=== PATIENT | female | born 1950 | race Caucasian/White ===

== ENCOUNTER → 2019-08-13 13:45 | Outpatient (CLI) | payer MEDICARE, OTHER, SELFPAY ==
--- NOTE | 2019-08-13 | DI.CT.S_ITS ---
PROCEDURE: CT SINUS SCREEN WO CON INDICATIONS: Postnasal drip TECHNIQUE: Noncontrast 3.0 mm axial images acquired from the frontal sinuses to the mid-sella, with coronal and sagittal reformats. For radiation dose reduction, the following was used: automated exposure control, adjustment of mA and/or kV according to patient size. COMPARISON: None. FINDINGS: Image quality: Excellent. Paranasal sinuses are normally aerated. No mucosal thickening identified. No air-fluid levels identified. The osteomeatal units this are patent bilaterally. No osseous thickening, osseous remodeling or osseous erosive changes. Nasal septum is deviated to the right. Left aurora bullosa is noted. No paradoxical turbinates. Type III right frontal recess are noted. Type I left frontal recess are noted. Interfrontal sinus septal cell with pneumatized corbin chris noted. IMPRESSION: 1. No mucosal thickening or air-fluid levels.. 2. Variant paranasal sinus anatomy as described above. Dictated by: Chio Burgos MD, PhD on 08/13/2019 at 14:48 Approved by: Chio Burgos MD, PhD on 08/13/2019 at 14:56
== END ==
PROVIDERS: Family Provider Family Medicine; PCP Nurse Practitioner Family; Visit Provider Nurse Practitioner Family
DX: R09.82 Postnasal drip (principal); J01.81 Other acute recurrent sinusitis
CPT/HCPCS: 70486

== ENCOUNTER → 2019-11-16 14:18 | Outpatient (CLI) | payer MEDICARE, OTHER, SELFPAY ==
--- NOTE | 2019-11-16 | DI.CT.S_ITS ---
PROCEDURE: CT ABDOMEN PELVIS W CON INDICATIONS: Generalized abdominal pain TECHNIQUE: After the administration of oral and intravenous contrast, 5 mm thick sections acquired from the diaphragms to the symphysis. 5 mm thick coronal and sagittal reformats were performed. For radiation dose reduction, the following was used: automated exposure control, adjustment of mA and/or kV according to patient size. COMPARISON: [facility], CT, ABDOMEN W&WO CONTRAST, 10/19/2016, 11:59. FINDINGS: Image quality: Excellent. ABDOMEN: Lung bases: Minimal scarring, anterior right lung base. Heart size is normal. Solid organs: Liver is normal in size and enhancement. Gallbladder is again noted a 14 mm gallstone. Gallbladder wall is not thickened. Biliary system is non-dilated. Pancreas enhances normally. Spleen is normal in size and enhancement. There is either a hyperenhancing 1.3 cm left adrenal nodule or a small saccular aneurysm off of the splenic artery. It is not appreciably changed in size. On the prior study, by my measurements, and measured 1.2 cm. Kidneys are normal in size and enhancement, without hydronephrosis. Peritoneum and bowel: Stomach, small bowel, and colon loops are normal in caliber and wall thickness. No free fluid or air. Nodes and vessels: No retroperitoneal or mesenteric adenopathy. Aorta and inferior vena cava are normal in caliber. Miscellaneous: No ventral hernias. PELVIS: Genitourinary: Bladder wall thickness is normal. Miscellaneous: No inguinal hernias or adenopathy. Bones: No suspicious bony lesions. No vertebral body compression fractures. Disc bulges at L3-L4, L4-L5, and L5-S1. IMPRESSION: 1. No evidence acute abdominal process. 2. Cholelithiasis. 3. Stable 1.3 cm hyper-enhancing left adrenal nodule versus small saccular splenic artery aneurysm. Dictated by: Jordi Garrido M.D. on 11/16/2019 at 15:54 Approved by: Jordi Garrido M.D. on 11/16/2019 at 16:11
== END ==
PROVIDERS: Family Provider Family Medicine; PCP Nurse Practitioner Family; Referring Provider Nurse Practitioner Family; Visit Provider Nurse Practitioner Family
DX: R10.84 Generalized abdominal pain (principal); R19.7 Diarrhea, unspecified; K80.20 Calculus of gallbladder without cholecystitis without obstruction
CPT/HCPCS: 74177

== ENCOUNTER → 2019-12-07 09:54 | Outpatient (CLI) | payer MEDICARE, OTHER, SELFPAY ==
--- NOTE | 2019-12-07 09:59 | DI.RAD.S_ITS ---
PROCEDURE: FL BARIUM SWALLOW INDICATIONS: dysphagia of solids and liquids. Epigastric pain COMPARISON: None. FINDINGS: Function: There is delayed esophageal peristalsis. Delayed esophageal clearance. No elicited gastroesophageal reflux. Morphology: Air-contrast images demonstrate normal mucosal morphology. Single contrast views show no esophageal strictures, extrinsic mass effects, or diverticula. Limited images of the stomach demonstrate normal appearance. IMPRESSION: Esophageal dysmotility. Dictated by: Braydon Mcdonough M.D. on 12/07/2019 at 14:42 Approved by: Braydon Mcdonough M.D. on 12/07/2019 at 14:43
== END ==
PROVIDERS: Family Provider Family Medicine; PCP Nurse Practitioner Family; Referring Provider Specialist; Visit Provider Specialist
DX: R13.10 Dysphagia, unspecified (principal); R10.13 Epigastric pain; K22.4 Dyskinesia of esophagus
CPT/HCPCS: 74220

== ENCOUNTER 2019-12-18 08:55 | Day surgery (SDC) | payer MEDICARE, OTHER, SELFPAY ==
--- NOTE | 2019-12-18 | PATH_ITS ---
[facility] Accession Number: [id number] . 01 Material submitted: . gastrointestinal site - RANDOM STOMACH BIOPSY . 02 Diagnosis: Random Stomach, Biopsy: Gastric antral and body mucosa with mild chronic inflammation and features of reactive gastropathy. Negative for Helicobacter organisms by immunohistochemistry. Negative for intestinal metaplasia. Negative for dysplasia or malignancy. [facility] 12/20/2019 1220 Local . 02 Electronically signed: . Justin Baker MD, PhD, Pathologist NPI- [id number] . 01 Gross description: . RANDOM STOMACH BIOPSY: Received in formalin are 3 fragment(s) of mercado, soft tissue measuring 0.1 x 0.1 x 0.1 cm to 0.2 x 0.2 x 0.2 cm submitted entirely in 1 cassette(s) [place] [place]18[place]20192030 Local . 02 Microscopic: . An immunohistochemical stain was performed to evaluate for Helicobacter organisms and is negative. The control stain showed appropriate reactivity. . * This test was developed and its performance characteristics determined by [facility]. It has not been cleared or approved by the U.S. Food and Drug Administration. The FDA has determined that such clearance or approval is not necessary. This test is used for clinical purposes. It should not be regarded as investigational or for research. . 02 Pathologist provided ICD-10: K29.70 . 02 CPT . 342966, [id number] Performed at: 01 [facility] [address] [facility], [place], [place] [id number] MD Lit Mendiola MD Phone: [phone] Performed at: 02 [facility] [place] [address] , [place], [place] [id number] MD Luzma Hinojosa MD Phone: [phone]
[2019-12-18] MEDS: LACTATED RINGERS 1,000 ML 100 ML IV (09:20)
[2019-12-18 09:27] VITALS: BP 104/56; PULSE 70; RESP 16; TEMP 36; O2SAT 100; BMI 23.2
[2019-12-18] MEDS: LIDOCAINE 4% SOLN 50 ML 20 ML TOP (09:45)
--- NOTE | 2019-12-18 09:51 | PM.PREOP ---
Pre-operative Note Interval Note History & Physical reviewed/Exam performed by Physician: Yes Changes to H&P: No ASA Class (for procedural sedation): II
--- NOTE | 2019-12-18 10:05 | PM.OP.ENDO ---
Operative Date/Time/Diagnoses Date of procedure: 12/18/19 Time of procedure: 10:05 Pre-op diagnosis: Left upper quadrant pain. Post-op diagnosis: same (Causes of pain not clear from this exam) Procedure & Clinicians Study performed: EGD with cold biopsy Same procedure as scheduled: Yes Indications: Trying to determine cause of epigastric and left upper quadrant pain Surgeon: Hema Hardwick Procedure Notes SCOAP/Timeout: Performed Procedure in detail: The patient had topical anesthetic applied to oropharynx. She was placed in left lateral decubitus position and underwent IV sedation directed by the surgeon consisting of fentanyl and Versed. A bite block was inserted and the scope was advanced through it into the esophagus. The esophagus was unremarkable. GE junction was noted at 38 cm from the incisors. The stomach insufflated well. There were no lesions seen in the body, antrum or at the incisura. The pyloric channel was narrowed but patent. There was no inflammation.. The duodenum was unremarkable to the 4th part. The scope was brought back into the stomach and retroflexed. The proximal stomach normal in appearance. There was no evidence of a hiatal hernia. I performed random biopsies of the body and antrum in case there was a sub clinical process that was not apparent on endoscopy.. The scope was straightened and brought out through the esophagus again. No lesions were seen. The scope was removed and the patient tolerated the procedure well. Scope withdrawal time: Not applicable Sedation minutes: 12 Findings: other findings (Normal exam) Specimen(s): other (Random stomach biopsies) Complications: none Post-procedure Recommendations: Will call with biopsy results and Other recommendation (Consider removal of gallbladder, though that may not relieve her symptoms) Follow up: weeks (Will discuss follow-up in office.) Disposition: PACU
[2019-12-18] MEDS: fentaNYL 250 MCG/5 ML INJ IV (10:06)
[2019-12-18] MEDS: MIDAZOLAM 5 MG/5 ML VIAL IV (10:07)
[2019-12-18 10:09] VITALS: BP 125/67; PULSE 84; RESP 12; TEMP 36.1; O2SAT 96
[2019-12-18 10:14] VITALS: BP 116/65; PULSE 88; RESP 14; TEMP 36.1; O2SAT 95
[2019-12-18 10:18] VITALS: BP 113/68; PULSE 95; RESP 13; TEMP 36.1; O2SAT 95
[2019-12-18 10:23] VITALS: BP 119/71; PULSE 82; RESP 19; TEMP 36.4; O2SAT 98
[2019-12-18 10:43] VITALS: BP 106/60; PULSE 75; RESP 16; TEMP 36.8; O2SAT 100
== END 2019-12-18 10:59 | disposition home or self-care (01) ==
PROVIDERS: Family Provider Family Medicine; PCP Nurse Practitioner Family; Referring Provider Specialist; Visit Provider Specialist
PROC: 0DJ08ZZ Inspection of Upper Intestinal Tract, Via Natural or Artificial Opening Endoscopic (ICD-10-PCS; CPT 43235; principal; 2019-12-18 09:45)
DX: K29.50 Unspecified chronic gastritis without bleeding (principal)
CPT/HCPCS: 43239; 99152; J2250; J3010

== ENCOUNTER 2020-01-29 06:35 | Day surgery (SDC) | payer MEDICARE, OTHER, SELFPAY ==
[2020-01-28 08:24] VITALS: BMI 22.8
[2020-01-29] VITALS (10 sets, daily range): BP systolic 106–141; BP diastolic 45–69; PULSE 76–107; RESP 9–16; TEMP 36.6–37.1; O2SAT 93–100; BMI 22.4
--- NOTE | 2020-01-29 | PATH_ITS ---
[facility] Accession Number: [id number] . 01 Material submitted: . gallbladder - GALLBLADDER AND CONTENTS . 02 Diagnosis: Gallbladder And Contents, Cholecystectomy: Cholelithiasis with mild chronic cholecystitis. One benign cystic duct lymph node. No evidence of neoplasm. [facility] 01/31/2020 1220 Local . 02 Electronically signed: . Justin Baker MD, PhD, Pathologist NPI- [id number] . 01 Gross description: . Received in formalin, labeled gallbladder + contents, is an intact gallbladder (length-7.5 cm, diameter-3.0 cm) with martinez-blue smooth shiny mucosa and a patent cystic duct. A 0.9 x 0.5 x 0.4 cm lymph node is identified. The lumen contains dark green viscous bile and one pale yellow gritty hard calculus (1.8 x 1.4 x 0.8 cm) with a crystalline cut surface. The mucosa is pale green, smooth, flat and focally bosselated. The wall is up to 0.1 cm thick. No nodules, masses or lesions are identified. Section code: (A1) cystic duct resection margin and two serial sections from the body; (A2) two longitudinal sections from the fundus; (A3) one bisected lymph node. ([id number]) /[facility] 01/30/2020 1057 Local . 02 Pathologist provided ICD-10: K80.60 . 02 CPT . 738449 Performed at: 01 [facility] [address] [facility], [place], [place] [id number] MD Lit Mendiola MD Phone: [phone] Performed at: 02 [facility] [address] [place], [place] [id number] MD Luzma Hinojosa MD Phone: [phone]
[2020-01-29] MEDS: LACTATED RINGERS 1,000 ML 42 ML IV ×2 (07:15→10:35)
--- NOTE | 2020-01-29 07:49 | PM.HP.1 ---
History of Present Illness History of Present Illness Date Patient Seen: 01/29/20 Time Patient Seen: 07:40 Chief complaint: 13819 Narrative: Patient is a woman who has upper abdominal pain. Is intermittent in nature. This is been going on for quite a while. Does not seem to be food related. Most of her pain is been left upper quadrant she has had an extensive evaluation the only thing found is gallstones. She has now developed pain in the right upper quadrant. She is brought in for more urgent procedure. Patient History Medical History Anxiety (Acute) Chronic back pain (Acute) Esophageal dysmotility (Acute) Former smoker (Acute) Gallstones (Acute) Gout (Acute) Migraines (Acute) Osteopenia (Acute) Osteoporosis (Acute) RLS (restless legs syndrome) (Acute) Surgical History Hx of bilateral cataract extraction (Acute 01/2017) Status post hysterectomy Family & Social History Family History Brother Hypertension Diabetes mellitus Stroke Brother Heart disease Diabetes mellitus Grandfather Diabetes mellitus Social History: household members significant other Tobacco & Substance use: Smoking Status Never smoker alcohol intake current alcohol intake frequency a few times a week Substance Use Type does not use Meds Home Medications and Allergies Home Medications Medication Instructions Recorded Confirmed Type buspirone 10 mg tablet 10 mg PO BID tab 12/05/19 01/29/20 History hydroxyzine HCl 25 mg tablet 25 mg PO QID PRN 12/05/19 01/29/20 History diazepam 2 mg PO BID PRN 12/18/19 01/29/20 History sumatriptan succinate 100 mg PO DAILY PRN 12/18/19 01/29/20 History acetaminophen [Acetaminophen Extra 500 mg PO DAILY PRN 01/29/20 01/29/20 History Strength] fluoxetine 40 mg PO DAILY 01/29/20 01/29/20 History Allergies Allergy/AdvReac Type Severity Reaction Status Date / Time prochlorperazine Allergy Unknown TORTICOLLIS Verified 12/18/19 09:22 [PROCHLORPERAZINE] Review of Systems Review of Systems ROS: Yes All systems reviewed with the patient and are negative except as otherwise documented Exam Vital Signs (past 8 hours): - 01/29/20 07:16 Temperature 98.3 F Pulse Rate 76 Respiratory Rate 16 Blood Pressure 106/53 L Pulse Oximetry 100 Oxygen Delivery Method Room Air Narrative Exam Narrative: Cooperative no apparent distress. Thin. Lungs are clear to auscultation no rales or rhonchi. Heart regular rate and rhythm without murmur gallop. Abdomen is scaphoid soft nontender. Vertical midline scar in the lower abdomen. Alert and oriented x3. Assessment & Plan Assessment & Plan narrative: I have discussed laparoscopic cholecystectomy with the patient. Risks of bleeding infection hernia injury to internal organs or ducts and bile leakage have been discussed. I also discussed with her the fact that her pain may not be relieved. She appears to understand wishes to proceed
--- NOTE | 2020-01-29 07:52 | PM.PREOP ---
Pre-operative Note COVID-19 COVID-19 status: Negative Interval Note History & Physical reviewed/Exam performed by Physician: Yes Changes to H&P: No
[2020-01-29] MEDS: CEFAZOLIN 2 GM/100 ML FROZ.PIGGY IV (07:55)
--- NOTE | 2020-01-29 08:16 | SUR.OPER ---
Supine on padded OR bed, head on pillow, safety belt at thigh, arms secured on padded arm boards <90 degrees abduction. Legs uncrossed. Padded footboard in place. Tape over blanket to secure lower legs.
[2020-01-29] MEDS: BUPIVACAINE 0.5% (PF) VIAL 30 ML INJ (08:22)
--- NOTE | 2020-01-29 09:37 | PM.OP.1 ---
Operative Date/Time/Diagnoses Date of procedure: 01/29/20 Time of procedure: 09:37 Pre-op diagnosis: Severe right upper quadrant pain with gallstones Post-op diagnosis: same (Chronic cholecystitis) Procedure & Clinicians Procedure: Laparoscopic cholecystectomy Same procedure as scheduled: Yes Indications: Patient developed severe right upper quadrant pain and has known gallstones. Evaluation for other sources of her pain have been negative. Surgeon: Hema Hardwick Click Yes if Unassisted: Yes Anesthesia Type: General Operative Notes Findings: For flimsy adhesions to the surface of the gallbladder. Gallbladder appeared mildly inflamed. Least 1 large stone palpated in the gallbladder. Closure Type: primary Specimen(s): other (Gallbladder and contents.) Prosthetic devices, grafts, tissues, transplants, or devices: None Estimated Blood Loss (mL): 5 Blood products transfused: none Procedure in detail: The patient was placed supine on the operating room table and underwent general endotracheal anesthesia. The patient was prepped and draped in the usual fashion. Local anesthetic was infiltrated near the umbilicus and curvilinear incision made and carried down through fascia into the peritoneal cavity. Stay sutures of 0 Vicryl were placed in the fascia. A 12 mm port was placed. The abdomen was insufflated. The patient was repositioned. Local anesthetic was infiltrated in 3 areas under the right costal margin and 3 small incisions made followed by placing 3 5 mm ports under direct laparoscopic camera vision internally. The gallbladder was grasped and elevated. Dissection was begun near its end. A ductal and vascular structure singular nature going directly gallbladder were identified. There also 2 smaller structures identified that could have been veins. Clips were placed across all these. The duct and artery were divided leaving 2 clips on each. One clip was left on the other 2 structures.. The gallbladder was then dissected from its bed in the liver using cautery. Bleeding was controlled as I progressed. It was detached and removed through the umbilical port. air was evacuated through the filter and the ports were all removed. The port sites were all irrigated. The stay sutures at the umbilicus were elevated. A 2 0 PDS suture was placed between them. The Vicryl and PDS sutures were then tied. The skin in all areas was closed with interrupted 4 0 Vicryl subcuticular stitches. Steri-Strips and Mastisol were applied. Band-Aids were placed and the patient was awakened, extubated and taken to the recovery area in good condition. Complications: none Post-operative Condition: stable Disposition: PACU Plan for aftercare: Discharge to home when alert and tolerating p.o.
--- NOTE | 2020-01-29 10:04 | SUR.PHASEI ---
Stable PACU stay to opd.
[2020-01-29] MEDS: OXYCODONE/ACETAMINOPHEN 5/325 TABLET 1 TAB PO (10:24)
--- NOTE | 2020-01-29 10:26 | SUR.PHASEII ---
PT C/O PAIN 01/10. MEDICATED WITH PERCOCET, AFTER APPLESAUCE TOLERATED. Pt's significant other, Lilliana called and d/c instructions discussed.
[2020-01-29] MEDS: ONDANSETRON 4 MG/2 ML INJ IV (10:51)
[2020-01-29] MEDS: LORazepam 2 MG/ML INJ 0.25 MG IV (10:59)
--- NOTE | 2020-01-29 11:46 | SUR.PHASEII ---
Late entry: Pt c/o feeling tight muscles and wanting a muscle relaxant. Ativan given after a discussion with Dr. Mcdonough. Pt placed on continuopus pulse ox and JULIENNE Wilson sat with pt. Sats 90-96% Pt more awake. Abdomen with bandainds c/d/i. Presently moving around in bed and siting on side of bed with Katie. Nausea resolved long ago and pain improved.
--- NOTE | 2020-01-29 14:01 | SUR.PHASEII ---
Late entry: Pt stated she was ready to go, dressed and escorted from unit in stable condition. Lilliana given paper work and prescription, stated he understood instructions.
== END 2020-01-29 12:15 | disposition home or self-care (01) ==
PROVIDERS: Family Provider Family Medicine; PCP Nurse Practitioner Family; Referring Provider Specialist; Visit Provider Specialist
PROC: 0FT44ZZ Resection of Gallbladder, Percutaneous Endoscopic Approach (ICD-10-PCS; CPT 47562; principal; 2020-01-29 07:45)
DX: K80.10 Calculus of gallbladder with chronic cholecystitis without obstruction (principal); K82.8 Other specified diseases of gallbladder; K22.8 Other specified diseases of esophagus; F32.9 Major depressive disorder, single episode, unspecified; F41.9 Anxiety disorder, unspecified; G25.81 Restless legs syndrome
CPT/HCPCS: 47562; J0330; J0690; J1100; J2060; J2250; J2405; J2704; J3010

== ENCOUNTER → 2020-10-16 13:04 | Outpatient (CLI) | payer MEDICARE, OTHER, SELFPAY ==
--- NOTE | 2020-10-16 13:05 | DI.RAD.S_ITS ---
PROCEDURE: XR DEXA AXIAL SKELETON INDICATIONS: Asymptomatic menopausal state COMPARISON: None. FINDINGS: This blank DEXA report has been sent in error by the PACS system. The correct and complete report will be forthcoming in 1-2 days. Thank you for your patience and understanding. Dictated by: Chio Burgos MD, PhD on 10/16/2020 at 14:38 Approved by: Chio Burgos MD, PhD on 10/16/2020 at 14:38
== END ==
PROVIDERS: Family Provider Family Medicine; PCP Nurse Practitioner Family; Referring Provider Nurse Practitioner Family; Visit Provider Nurse Practitioner Family
DX: Z78.0 Asymptomatic menopausal state (principal); M81.0 Age-related osteoporosis without current pathological fracture; Z82.62 Family history of osteoporosis; Z87.891 Personal history of nicotine dependence
CPT/HCPCS: 77080

== ENCOUNTER 2021-10-24 19:55 | Emergency (ER) | payer MEDICARE, OTHER, SELFPAY ==
[2021-10-24 20:08] VITALS: PULSE 76; O2SAT 100
[2021-10-24 20:09] VITALS: BP 124/74; PULSE 99; RESP 16; TEMP 36.8; O2SAT 97; BMI 24.2
[2021-10-24 20:30] VITALS: BP 158/74; PULSE 76; O2SAT 100
[2021-10-24 20:35] VITALS: PULSE 74; RESP 16; O2SAT 97
[2021-10-24] MEDS: LIDO 1%/SOD BICARB 8.4% (10ML) 10 ML SYRINGE INJ (20:35)
--- NOTE | 2021-10-24 20:41 | ED_ITS ---
HPI - Wound/Laceration General Chief Complaint: Wound/Laceration Stated Complaint: Left forearm cut this evening Time Seen by Provider: 10/24/21 20:05 History of Present Illness HPI narrative: 71-year-old female nonsmoker with noncontributory medical history presents with a chief complaint of an accidental fall resulting in an 8 cm laceration on her left forearm. She had been reaching up over her head to try to hang an object when she fell back and hit her forearm are on the sharp handle of a product coordinator her cabin. She denies any head neck or back pain. She denies any deep bony pain of her shoulder, elbow or wrist. She denies any chance of foreign body. She has no numbness, tingling or weakness. Her tetanus is up-to-date Related Data Home Medications Medication Instructions Recorded Confirmed buspirone 10 mg tablet 10 mg PO BID tab 12/05/19 12/11/20 diazepam 2 mg tablet 2 mg PO BID PRN 12/18/19 12/11/20 sumatriptan succinate 100 mg tablet 100 mg PO DAILY PRN 12/18/19 12/11/20 acetaminophen 500 mg tablet 500 mg PO DAILY PRN 01/29/20 12/11/20 (Acetaminophen Extra Strength) fluoxetine 40 mg capsule 40 mg PO DAILY 01/29/20 12/11/20 Previous Rx's Medication Instructions Recorded cephalexin 500 mg capsule 500 mg PO Q6H 7 Days #28 cap 10/24/21 Allergies Allergy/AdvReac Type Severity Reaction Status Date / Time prochlorperazine Allergy Unknown TORTICOLLIS Verified 12/18/19 09:22 [PROCHLORPERAZINE] Phenothiazines AdvReac Dystonia Verified 12/11/20 13:42 Review of Systems Review of Systems Narrative: GENERAL: Denies chills, fatigue, malaise, fever, sweats. HEENT: Denies sinus pain, ear pain, sore throat, difficulty swallowing, dizziness. RESPIRATORY: Denies dyspnea, cough, wheezing, hemoptysis, sputum. CARDIOVASCULAR: Denies chest pain, palpitations, orthopnea, edema, GASTROINTESTINAL: Denies nausea, vomiting, abdominal pain, diarrhea, constipation, melena. : Denies dysuria, frequency, incontinence, hematuria, urinary retention. MUSCULOSKELETAL: denies weakness, joint pain, or bony pain SKIN: See HPI NEUROLOGIC: Denies weakness, headache, numbness, change in speech, confusion, seizures, incoordination. PSYCHIATRIC: No concerning psychosocial issues. 12 point review of systems is negative except for those stated above Patient History Medical History Anxiety Chronic back pain Esophageal dysmotility Former smoker Gallstones Gout Migraines Osteopenia Osteoporosis RLS (restless legs syndrome) Surgical History Hx of bilateral cataract extraction (01/2017) Status post hysterectomy Family History Brother Hypertension Diabetes mellitus Stroke Brother Heart disease Diabetes mellitus Grandfather Diabetes mellitus Social History marital status: unmarried,living together household members: significant other occupational status: previously employed Smoking Status: Never smoker alcohol intake: current substance use type: does not use Smoking Status: Never smoker alcohol intake frequency: a few times a week Substance Use Type: does not use Exam Narrative Exam Narrative: GEN: AOx3 and in mild distress EYES: Pupils are equal, round, and reactive to light and accommodation. Extraoccular muscles are intact bilaterally. There is no subconjunctival hemo rrhage or exudate. CHEST: Lungs are clear to auscultation bilaterally and free of wheezes, rales, or rhonchi. Heart rate is regular rhythm, there are no murmurs, clicks, rubs, or gallops. There is no chest wall tenderness. ABD: Abdomen is soft and nontender. There is no guarding or rebound. Bowel sounds are normal in all 4 quadrants. There is no mass or organomegaly. EXT: 8 cm laceration on the ulnar side of left forearm, no bleeding or foreign body noted, subcutaneous tissue is exposed, multilayer closure will be needed. Painless ROM of all extremities with no loss of sensation or strength. SKIN: Warm, pink, and dry. No erythema or rash Initial Vital Signs Initial Vital Signs: Vital Signs Pulse Rate 76 10/24/21 20:08 Pulse Oximetry 100 10/24/21 20:08 Procedures Laceration Repair Laceration 1: Site: upper extremity Side (If applicable): left Size (cm): 8 Description: linear, irregular and clean Depth: involves muscle layer Local Anesthetic: lidocaine 1% and with bicarb Amount of anesthesia used (mL): 6 Pre-repair: wound explored, irrigated extensively and deep structures i ntact Skin layer closed with: nylon Size (cm): 5-0 Number of sutures: 8 Technique: simple, interrupted and horizontal mattress Subcutaneous layer closed with: vicryl Size: 4-0 Number of sutures: 2 Technique: simple, interrupted Course Vital Signs Vital signs: Vital Signs - 8 hr 10/24/21 20:08 10/24/21 20:09 10/24/21 20:30 Temperature 98.2 F Pulse Rate 76 99 H 76 Respiratory Rate 16 Blood Pressure 124/74 158/74 H Pulse Oximetry 100 97 100 10/24/21 20:35 Temperature Pulse Rate 74 Respiratory Rate 16 Blood Pressure Pulse Oximetry 97 Discharge Plan Departure Patient Disposition: Home Clinical Impression: Laceration of arm, left, complicated Instructions: DI for Laceration Repair -- Complex Activity Restrictions/Additional Instructions: *You have been diagnosed with [left forearm laceration] *What to do: *Please continue to take your regular medications as directed. [ x] New medication prescriptions sent to your pharmacy: [ [place]] [ ] New medication written as a paper prescription [ ] No new medications given * Please keep the wound clean and dry to the best of your ability. Please monitor for signs of infection such as redness to the skin or increasing pain. Have the sutures/wendy removed by your doctor in about 10-14 days. If you are unable to get into your doctor, we would be happy to remove the sutures/wendy in that same timeframe. *If you do not have a primary care provider please contact the [facility] Resource line at [phone]. They will ask some questions about your medical history and help get you set up with a doctor in the community. *Return to Emergency Department if you should have any new, worsening or concerning symptoms, such as [fever greater than 101 F, shaking chills, worsening pain, persistent vomiting or other bothersome symptoms] Prescriptions: New cephalexin 500 mg capsule 500 mg PO Q6H 7 Days Qty: 28 0RF No Action buspirone 10 mg tablet 10 mg PO BID 0RF sumatriptan succinate 100 mg Tablet 100 mg PO DAILY PRN (Reason: Migraine Headache) 0RF diazepam 2 mg Tablet 2 mg PO BID PRN (Reason: Anxiety) 0RF fluoxetine 40 mg Capsule 40 mg PO DAILY 0RF acetaminophen [Acetaminophen Extra Strength] 500 mg Tablet 500 mg PO DAILY PRN (Reason: Pain (Scale Score 1-3)) 0RF Referrals: Jihan Sun ARNP [Primary Care Provider] -
== END 2021-10-24 20:35 | disposition home or self-care (01) ==
PROVIDERS: Emergency Provider Emergency Medicine; Family Provider Family Medicine; PCP Nurse Practitioner Family
DX: S51.812A Laceration without foreign body of left forearm, initial encounter (principal); W26.8XXA Contact with other sharp object(s), not elsewhere classified, initial encounter
CPT/HCPCS: 13121; 13122; 99283

== ENCOUNTER → 2021-12-01 13:08 | Outpatient (CLI) | payer MEDICARE, OTHER, SELFPAY ==
--- NOTE | 2021-12-01 | DI.MRI.S_ITS ---
PROCEDURE: MR HEAD/BRAIN WO CON INDICATIONS: dizziness TECHNIQUE: Non-contrast axial T1 spin echo, axial T2 fast spin echo, sagittal and axial FLAIR, coronal T2 fast spin echo, axial gradient echo, axial diffusion and ADC through the brain. COMPARISON: [facility], MR, BRAIN WITHOUT CONTRAST, 12/12/2017, 19:23. FINDINGS: Image quality: Excellent. CSF spaces: Ventricles appear symmetric in size and shape. Basal cisterns are patent. No extra-axial fluid collections. Brain: No intracranial bleeds or mass effects. There is mild cerebral volume loss for age. There are mild periventricular and deep white matter chronic small vessel ischemic changes. Brainstem appears normal. Diffusion-weighted images show no acute ischemic insults. No chronic ischemic insults. Normal intravascular flow voids are present. Skull and face: Calvarial bone marrow is normal in signal. Orbits are normal. Sinuses: Sinuses and mastoids are clear. IMPRESSION: 1. No acute intracranial disease process. 2. Mild, diffuse cerebral volume loss. 3. Mild periventricular and subcortical white matter chronic microvascular ischemic change. Dictated by: Chio Burgos MD, PhD on 12/01/2021 at 13:55 Approved by: Chio Burgos MD, PhD on 12/01/2021 at 13:59
== END ==
PROVIDERS: Family Provider Family Medicine; PCP Nurse Practitioner Family; Referring Provider Nurse Practitioner Family; Visit Provider Nurse Practitioner Family
DX: S09.90XD Unspecified injury of head, subsequent encounter (principal); R42 Dizziness and giddiness; R26.89 Other abnormalities of gait and mobility
CPT/HCPCS: 70551

== ENCOUNTER → 2021-12-25 11:23 | Outpatient (CLI) | payer MEDICARE, OTHER, SELFPAY | PROVIDERS: Family Provider Family Medicine; PCP Nurse Practitioner Family; Referring Provider Nurse Practitioner Family; Visit Provider Nurse Practitioner Family | DX: M81.0 Age-related osteoporosis without current pathological fracture (principal); Z78.0 Asymptomatic menopausal state | CPT/HCPCS: 77080 ==

== ENCOUNTER 2022-04-06 12:22 | Day surgery (SDC) | payer MEDICARE, OTHER, SELFPAY ==
--- NOTE | 2022-04-06 | PATH_ITS ---
[facility] Accession Number: [id number] . 01 Material submitted: . esophagus - ESOPHAGUS BIOPSY . 01 Diagnosis: Esophagus, Biopsy: Squamous epithelium with no diagnostic abnormality. Intraepithelial eosinophils are not increased. Negative for dysplasia and malignancy. V 04/08/2022 1402 Local . 01 Electronically signed: . Luzma Hinojosa MD, Pathologist NPI- [id number] . 01 Gross description: . Received in formalin in a specimen container labeled with the patient's name, medical record number, and esophagus biopsy is an aggregate of three pink soft tissue fragments that measure 0.4 x 0.4 x 0.3 cm. The specimen is entirely submitted in cassette A1. ([id number]) /V 04/07/2022 1832 Local . 01 Pathologist provided ICD-10: K21.9 . 01 CPT . 195749 Specimen Comment: A courtesy copy of this report has been sent to [phone] Performed at: 01 [facility] [address] [place] [id number] MD Lit Mendiola MD Phone: [phone]
[2022-04-06 12:53] LABS: COVID19 -Nasal RAPID Negative (Negative)
[2022-04-06] MEDS: LACTATED RINGERS 1,000 ML 200 ML IV (15:01)
[2022-04-06 15:02] VITALS: BP 134/76; PULSE 101; RESP 16; TEMP 36.4; O2SAT 97; BMI 26.2
--- NOTE | 2022-04-06 15:31 | PM.PREOP ---
Pre-operative Note Interval Note History & Physical reviewed/Exam performed by Physician: Yes Changes to H&P: No
[2022-04-06] MEDS: LIDOCAINE 4% SOLN 50 ML 20 ML TOP (15:45)
[2022-04-06] MEDS: MIDAZOLAM 5 MG/5 ML VIAL 6 MG IV (16:01)
[2022-04-06] MEDS: fentaNYL 250 MCG/5 ML INJ 150 MCG IV (16:02)
--- NOTE | 2022-04-06 16:15 | P.OP.EGD&C_ITS ---
Operative Date/Time/Diagnoses Date of procedure: 04/06/22 Time of procedure: 16:15 Pre-op diagnosis: Dysphagia, change in bowel habits Post-op diagnosis: same Procedure & Clinicians Study performed: Esophagoduodenoscopy and sigmoidoscopy Same procedure as scheduled: Yes Indications: Esophageal dysphagia. Change in bowel habits. Surgeon: Austin Craig Procedure Notes Procedure in detail: Medications: Conscious sedation using 6mg IV midazolam and 150mcg IV of fentanyl The history and physical was performed/updated and the patient is ASA class is 2 . The procedure was discussed in detail with the patient. Potential risks complications including infection, bleeding, missed diagnosis, perforation, need for surgery, and were explained. Their questions were answered and informed consent was obtained. Patient placed in left lateral decubitus position. Time out was performed. Procedural sedation was administered with Versed and Fentanyl. A bite block was placed. the scope was inserted into the mouth and advanced through the esophagus and into the stomach. There was no esophageal stricture. The pylorus was intubated and the duodenum was normal to the 2nd portion. The scope was retroflexed within the stomach and there was a small hiatal hernia. No ulcers, or gastritis. The scope was withdrawn into the esophagus the Z line was seen at 35 cm from the incisions. There was no Castorena's esophagitis or masses or strictures. Stomach was desufflated and scope removed. Patient tolerated procedure well. Examination began with a thorough inspection of the perianal area there was no evidence of fissures, fistulae, external hemorrhoids or cutaneous malignancy. The colonoscopy scope was then placed into the anal canal and was advanced forward. No further progress could be made at 40 cm from the anal verge se condary to a narrowing within the colon. Tattoo was injected into the mucosa distal to the stricture. Scope was carefully withdrawn there were no abnormalities in the sigmoid colon or rectum. FINDINGS 1. Normal EGD 2. Colonic stricture at 40 cm The patient tolerated the procedure well. They will be discharged once criteria are met. The prep was of good/excellent quality. The sedation time was 23 minutes. Specimen(s): none sent Complications: none Impression: Colonic stricture Post-procedure Plan for aftercare: Barium enema Disposition: same day surgery
[2022-04-06 16:18] VITALS: BP 136/61; PULSE 105; RESP 16; TEMP 36.3; O2SAT 96
--- NOTE | 2022-04-06 16:22 | SUR.PHASEI ---
Dr. Craig in to talk to pt about her colonoscopy and her endoscopy.
[2022-04-06 16:25] VITALS: BP 119/33; PULSE 100; PULSE 95; RESP 16; O2SAT 100; O2SAT 96
[2022-04-06 16:33] VITALS: BP 116/70; PULSE 101; RESP 20; O2SAT 98
[2022-04-06] MEDS: ONDANSETRON 4 MG/2 ML INJ IV (16:33)
--- NOTE | 2022-04-06 16:39 | SUR.PHASEI ---
pt curriently denies pain and nausea. Pt states she feels better.
[2022-04-06 16:40] VITALS: BP 118/50; PULSE 93; RESP 16; O2SAT 99
[2022-04-06 16:49] VITALS: BP 145/76; PULSE 99; RESP 16; TEMP 36.3; O2SAT 99
== END 2022-04-06 16:54 | disposition home or self-care (01) ==
PROVIDERS: Family Provider Family Medicine; PCP Nurse Practitioner Family; Referring Provider Surgery; Visit Provider Surgery
PROC: 0DJ08ZZ Inspection of Upper Intestinal Tract, Via Natural or Artificial Opening Endoscopic (ICD-10-PCS; CPT 43235; principal; 2022-04-06 15:30)
PROC: 0DJD8ZZ Inspection of Lower Intestinal Tract, Via Natural or Artificial Opening Endoscopic (ICD-10-PCS; CPT 45378; 2022-04-06 15:30)
DX: R19.4 Change in bowel habit (principal); R13.10 Dysphagia, unspecified; Z20.822 Contact with and (suspected) exposure to COVID-19; K44.9 Diaphragmatic hernia without obstruction or gangrene; K56.699 Other intestinal obstruction unspecified as to partial versus complete obstruction
CPT/HCPCS: 43235; 45335; 87635; 99152; C9803; J2250; J2405; J3010

== ENCOUNTER → 2022-04-15 11:14 | Outpatient (CLI) | payer MEDICARE, OTHER, SELFPAY ==
--- NOTE | 2022-04-15 11:16 | DI.CT.S_ITS ---
PROCEDURE: CT ABDOMEN PELVIS W CON INDICATIONS: abdominal pain TECHNIQUE: After the administration of oral and intravenous contrast, axial sections were acquired from the lung bases to the pubic symphysis. Coronal and sagittal reformats were performed. For radiation dose reduction, the following was used: automated exposure control, adjustment of mA and/or kV according to patient size. COMPARISON:[facility], CT, CT ABDOMEN PELVIS W CON, 11/16/2019, 15:25. FINDINGS: Image quality: Excellent. LOWER CHEST: The lung bases are clear ABDOMEN: Liver: Normal size with no mass. The portal vein and hepatic veins are patent. Gallbladder: Status post cholecystectomy. Biliary ducts: No intra or extrahepatic biliary ductal dilatation. Pancreas: No mass or ductal dilatation. No surrounding inflammation or fluid. Spleen: Normal size with no mass. Adrenal Glands: No hypertrophy or nodules. Kidneys and Ureters: No obstructive calculus or hydronephrosis. No solid mass. No cystic mass. Stomach and Bowel: The distal esophagus and stomach are normal. The small bowel has a normal caliber and appearance. The terminal ileum is normal. The large bowel has a normal caliber and appearance. The appendix is normal. No free fluid or air. Peritoneum: No abnormal intraperitoneal fluid. No free air. Ventral Wall: No hernia. Abdominal Nodes: No retroperitoneal or mesenteric adenopathy by size criteria. Vessels: The aorta has atherosclerosis with no aneurysmal dilatation. PELVIS: Pelvic Organs: Unremarkable. Bladder: No wall thickening or focal mass. Pelvic Nodes: No enlarged lymph nodes. Miscellaneous: No inguinal hernias are seen. BONES: Mild rightward curvature of the lumbar spine. No suspicious bony lesions. No vertebral body compression fractures. IMPRESSION: 1. No acute abdominal or pelvic abnormality. 2. No explanation for abdominal pain identified. Dictated by: Carmelo Lucero M.D. on 04/15/2022 at 15:03 Approved by: Carmelo Lucero M.D. on 04/15/2022 at 15:08
[2022-04-15 12:35] LABS: BUN Creatinine Ratio 17.9 (6-22); Blood Urea Nitrogen 15 mg/dL (7-17); Estimated Glomerular Filt Rate > 60 mL/min (>60)
== END ==
PROVIDERS: Family Provider Family Medicine; PCP Nurse Practitioner Family; Referring Provider Surgery; Visit Provider Surgery
DX: R10.9 Unspecified abdominal pain (principal); Z90.49 Acquired absence of other specified parts of digestive tract
CPT/HCPCS: 36415; 74177; 82565; 84520; Q9967

== ENCOUNTER → 2022-12-28 11:55 | Outpatient (CLI) | payer MEDICARE, OTHER, SELFPAY ==
--- NOTE | 2022-12-28 | DI.MG.S_ITS ---
BILATERAL DIGITAL SCREENING MAMMOGRAM 3D/2D WITH CAD: 12/28/2022 CLINICAL: Routine screening. Comparison is made to exams dated: 03/04/2016 mammogram, 02/04/2015 mammogram, 11/30/2013 mammogram, and 05/16/2012 mammogram - [facility]. Both breasts are heterogeneously dense, which may obscure small masses (category c / 51-75% glandular tissue). Current study was also evaluated with a Computer Aided Detection (CAD) system. No significant masses, calcifications, or other findings are seen in either breast. There has been no significant interval change. IMPRESSION: NEGATIVE There is no mammographic evidence of malignancy. A 1 year screening mammogram is recommended. Based on the Tyrer Cuzick model (a risk assessment model) the patient's lifetime risk is 7.0% and her 10 year risk is 5.8%. According to the ACR, ACS, and NCCN guidelines, an annual breast MRI exam along with mammogram is recommended if the patient's lifetime risk is 20% or greater. This exam was interpreted at Station ID: [id number]. NOTE: For mammograms, a report in lay terms will be sent to the patient. Approximately 15% of breast malignancies will not be visualized mammographically. In the management of a palpable breast mass, a negative mammogram must not discourage biopsy of a clinically suspicious lesion. Electronically Signed By: Delroy woodward/erinn:12/28/2022 13:44:06 letter sent: Normal Exam ACR BI-RADS Category 1: Negative [id number]
== END ==
PROVIDERS: Family Provider Family Medicine; PCP Nurse Practitioner Family; Referring Provider Nurse Practitioner Family; Visit Provider Nurse Practitioner Family
DX: Z12.31 Encounter for screening mammogram for malignant neoplasm of breast (principal)
CPT/HCPCS: 77063; 77067

== ENCOUNTER → 2023-02-15 12:03 | Outpatient (CLI) | payer MEDICARE, OTHER, SELFPAY ==
--- NOTE | 2023-02-15 12:06 | DI.CT.S_ITS ---
PROCEDURE: CT CHEST ABD PEL W CON INDICATIONS: ABDOMINAL PAIN AND DYSPHAGIA TECHNIQUE: After the administration of oral and intravenous contrast, axial sections acquired from the supraclavicular neck to the pubic symphysis. Coronal and sagittal reformats were performed. For radiation dose reduction, the following was used: automated exposure control, adjustment of mA and/or kV according to patient size. COMPARISON: [facility], CT, CT ABDOMEN PELVIS W CON, 11/16/2019, 15:25. [facility], CT, CT ABDOMEN PELVIS W CON, 04/15/2022, 13:06. FINDINGS: CHEST: Lower Neck: No enlarged lymph nodes. Axillae: No enlarged lymph nodes. Lungs: Mild emphysema. No consolidation or pleural effusion. Few foci of peripheral airways mucous plugging present. Clustered tree-in-bud/centrilobular nodules present anterior aspect of the right lower lobe. Heart: No pericardial effusion. Thoracic Vessels: The aorta and pulmonary arteries demonstrate normal size. Mediastinum and Maria Luz: No enlarged lymph nodes. Esophagus: No wall thickening. ABDOMEN: Liver: A few scattered small hypodensities are present, too small to characterize, but not significantly changed. Gallbladder: Surgically absent. Biliary ducts: Unremarkable. Pancreas: Unremarkable. Spleen: Unremarkable. Adrenal Glands: 0.9 cm left adrenal nodule not significantly changed since at least 2019. Kidneys and Ureters: No hydronephrosis. Stomach and Bowel: No bowel obstruction. No evidence of acute appendicitis. Peritoneum: No abnormal intraperitoneal fluid. No free air. Ventral Wall: Small fat containing periumbilical hernia. Abdominal Nodes: No retroperitoneal or mesenteric adenopathy by size criteria. Vessels: Aorta and inferior vena cava are normal in size. PELVIS: Pelvic Organs: The uterus is not visualized and is presumed surgically absent. Bladder: Unremarkable. Pelvic Nodes: No enlarged lymph nodes. Bones: Multilevel degenerative change of the visualized spine. IMPRESSION: 1. Cluster of micronodularity at the anterior aspect of the right lower lobe is likely infectious/inflammatory, such as an infectious bronchiolitis/bronchopneumonia. A few foci of peripheral airways mucous plugging are also present elsewhere within the lungs. 2. No definite acute abnormality identified within the abdomen or pelvis. Dictated by: Scott Young M.D. on 02/16/2023 at 9:31 Approved by: Scott Young M.D. on 02/16/2023 at 10:05
== END ==
PROVIDERS: Family Provider Family Medicine; PCP Family Medicine; Referring Provider Physician Assistant; Visit Provider Physician Assistant
DX: K42.9 Umbilical hernia without obstruction or gangrene (principal); R10.84 Generalized abdominal pain; R13.19 Other dysphagia; J43.9 Emphysema, unspecified; Z90.49 Acquired absence of other specified parts of digestive tract
CPT/HCPCS: 71260; 74177; Q9967

== ENCOUNTER 2023-02-23 10:38 | Emergency (ER) | payer MEDICARE, OTHER, SELFPAY ==
[2023-02-23] VITALS (8 sets, daily range): BP systolic 112–146; BP diastolic 54–62; PULSE 75–81; RESP 16; TEMP 36.1; O2SAT 91–100; BMI 24.8
--- NOTE | 2023-02-23 11:02 | DI.CT.S_ITS ---
PROCEDURE: CT HEAD/BRAIN WO CON INDICATIONS: fall TECHNIQUE: Noncontrast 4.5 mm thick angled axial sections acquired from the foramen magnum to the vertex, with coronal and sagittal reformats. For radiation dose reduction, the following was used: automated exposure control, adjustment of mA and/or kV according to patient size. COMPARISON: [facility], CT, HEAD WITHOUT CONTRAST, 04/27/2017, 11:24. FINDINGS: Image quality: Excellent. CSF spaces: Basal cisterns are patent. No extra-axial fluid collections. The ventricles are symmetric in size and shape. Brain: No acute intracranial hemorrhage or mass effect. There is cerebral volume loss for age, with resultant ventricular and sulcal prominence. There are periventricular and deep white matter chronic small vessel ischemic changes. There is intracranial internal carotid artery atherosclerosis. Skull and face: Calvarium and visualized facial bones appear intact, without suspicious lesions. Sinuses: Visualized sinuses and mastoids are clear. IMPRESSION: No acute intracranial abnormality. Approved by: Scott Guzman M.D. on 02/23/2023 at 11:26
--- NOTE | 2023-02-23 11:03 | DI.CT.S_ITS ---
PROCEDURE: CT CERVICAL SPINE WO CON INDICATIONS: fall TECHNIQUE: Noncontrast 3 mm thick sections acquired from the skull base to the T4 level. Sagittal and coronal reformats were then constructed. For radiation dose reduction, the following was used: automated exposure control, adjustment of mA and/or kV according to patient size. COMPARISON: [facility], CT, HEAD AND NECK ANGIO, 04/27/2017, 12:43. FINDINGS: Image quality: Excellent. Bones: No acute osseous fracture. There is 3 mm grade 1 anterolisthesis of C4 on C5, which does not appear significantly changed when compared to CTA from 04/27/2017. Multilevel disc space narrowing seen as well as uncovertebral joint and facet hypertrophy, overall worst at the C5-6 disc space level. Visualized superior ribs are intact. Soft tissues: Prevertebral soft tissues are normal in thickness. No paravertebral hematomas. No apical pneumothoraces. IMPRESSION: 1. No acute cervical spine fracture. 2. Grade 1 anterolisthesis of C4 on C5 does not appear significantly changed when compared to prior exam from 04/27/2017. 3. Mild multilevel spondylosis. Approved by: Scott Guzman M.D. on 02/23/2023 at 11:30
--- NOTE | 2023-02-23 11:04 | DI.RAD.S_ITS ---
PROCEDURE: XR CHEST 1V INDICATIONS: fall TECHNIQUE: One view of the chest was acquired. COMPARISON: [facility], CT, CT CHEST ABD PEL W CON, 02/15/2023, 13:45. [facility], CR, CHEST 2 VIEW, 10/11/2016, 12:28. FINDINGS: Surgical changes and devices: None. Lungs and pleura: Lungs are clear. No pleural effusions or pneumothorax. Mediastinum: Mediastinal contours appear normal. Heart size is normal. Bones and chest wall: No suspicious bony lesions. Overlying soft tissues appear unremarkable. IMPRESSION: No acute cardiopulmonary abnormality. Approved by: Scott Guzman M.D. on 02/23/2023 at 11:31
--- NOTE | 2023-02-23 11:19 | ED_ITS ---
HPI - Back Pain/Injury <Emily Randolph PA-C - Last Filed: 02/23/23 12:28> General Chief Complaint: Trauma Stated Complaint: Fell back in her wheel chair backwards Time Seen by Provider: 02/23/23 11:10 Source: patient History of Present Illness HPI Narrative: 72-year-old woman with a history of Parkinson's chronic hip pain chronic left lower leg weakness and chronic gait difficulty who presents with concern for neck pain. Patient states that she was trying out her new electric wheelchair on Tuesday home on [place] she was on the lawn and went over a divot in the grass she said that the wheelchair kept going up the hill on the far side of the digit and she ended up going backwards with her body weight hitting the ground behind her and hyperflexing her neck with her chin to her chest. She states that the wheelchair did not land on her but at that time she felt an immediate popping cracking sensation all through her neck. She states that she immediately had some pain and laid there for a while, her partner helped her up. Since that time she has been icing it and has used ibuprofen. She states it felt much better by the next morning, she was going to go to the clinic however the doctors out and they have had a full schedule. Because the pain has not really improved over the past few days she came here by [facility] to the ER for further evaluation. She states she has been eating and drinking normally with normal out-go for her, she has been getting around with a walker which she typically uses. She denies any changes in function, including new weakness in any of her extremities, numbness or tingling in any of her extremities, headache, vision change, or any other symptoms. Related Data Home Medications Medication Instructions Recorded Confirmed fluoxetine 40 mg capsule 40 mg PO DAILY 01/29/20 03/11/22 calcium carb-magnesium carb PO 03/11/22 03/11/22 carbidopa 10 mg-levodopa 100 mg 1 tab PO ONCE 03/11/22 03/11/22 tablet diazepam 2 mg tablet 5 mg PO BID PRN Anxiety 03/11/22 03/11/22 omega-3 fatty acids 1,000 mg PO DAILY 03/11/22 03/11/22 tumeric 100 mg-sam 150 mg-olive cap PO 03/11/22 03/11/22 50 mg-oreg 150 mg-caprylate capsule vitamin d .Route 03/11/22 Previous Rx's Medication Instructions Recorded cholestyramine-aspartame 4 gram 4 g PO DAILY #60 ea 03/11/22 oral powder for susp in a packet (Cholestyramine Light) lidocaine 5 % topical patch 1 patch topical DAILY pain #15 ea 02/23/23 Allergies Allergy/AdvReac Type Severity Reaction Status Date / Time prochlorperazine Allergy Unknown TORTICOLLIS Verified 02/23/23 11:15 [PROCHLORPERAZINE] Phenothiazines AdvReac Dystonia Verified 02/23/23 11:15 Review of Systems <Emily Randolph PA-C - Last Filed: 02/23/23 12:28> Review of Systems Narrative: See HPI Patient History <Emily Randolph PA-C - Last Filed: 02/23/23 12:28> Medical History (Updated 02/23/23 @ 12:25 by Emily Randolph PA-C) Anxiety Chronic back pain Esophageal dysmotility Former smoker Gallstones Gout Migraines Osteopenia Osteoporosis RLS (restless legs syndrome) Surgical History Hx of bilateral cataract extraction (01/2017) Status post hysterectomy Family History Brother Hypertension Diabetes mellitus Stroke Brother Heart disease Diabetes mellitus Grandfather Diabetes mellitus Social History marital status: unmarried,living together household members: significant other occupational status: previously employed Smoking Status: Former smoker alcohol intake: current substance use type: does not use Smoking Status: Former smoker tobacco type: cigarettes alcohol intake frequency: 0-2 drinks per day Substance Use Type: does not use Exam <Emily Randolph PA-C - Last Filed: 02/23/23 12:28> Narrative Exam Narrative: GENERAL: 72 year old patient appears stated age. Well-developed patient, in mild distress. HEAD: Atraumatic. Normocephalic. EYES: Pupils equal round and reactive. Extraocular motions intact. No scleral icterus. No injection or drainage. ENT: Nose without bleeding, purulent drainage. Airway patent. NECK: Trachea midline. Non tender CARDIOVASCULAR: Regular rate and rhythm without murmurs, gallops, or rubs. RESPIRATORY: Clear to auscultation. Breath sounds equal bilaterally. No wheezes, rales, or rhonchi. GASTROINTESTINAL: Abdomen soft, non-tender, nondistended. EXTREMITIES: No edema or joint tenderness. Equal bilateral hatchery employee, strength and range of motion at the shoulder and elbow are intact with active range of motion. Strong equal radial pulses. The left lower extremity is slightly weaker than the right lower extremity, baseline per patient. Dorsiflexion and plantar flexion are intact and equal bilaterally, patient has more difficulty lifting left leg up off the bed (at baseline). BACK: Patient has spinous process tenderness/soreness without deformity or step-offs at C7, T1, she has paraspinal muscle tenderness primarily on the right side of the upper thoracic spine and cervical spine. Trapezius is tender bilaterally more so on the right, Otherwise Nontender without deformity or crepitance. No flank tenderness. NEURO: AOx3. SKIN: No rash or erythema of visible areas Initial Vital Signs Initial Vital Signs: Vital Signs Blood Pressure 146/62 H 02/23/23 10:54 <Ingrid Wellington DO - Last Filed: 02/23/23 19:33> Initial Vital Signs Initial Vital Signs: Vital Signs Blood Pressure 146/62 H 02/23/23 10:54 Course <Emily Randolph PA-C - Last Filed: 02/23/23 12:28> Orders Ordered: ED Orders 02/23/23 11:02 CT head/brain wo con Stat 02/23/23 11:03 CT cervical spine wo con Stat 02/23/23 11:04 CXR [XR chest 1V] Stat Vital Signs Vital signs: Vital Signs - 8 hr 02/23/23 12:33 02/23/23 12:34 02/23/23 12:34 Pulse Rate 81 Blood Pressure 112/56 L Pulse Oximetry 98 98 <DO Sandy Mckeon Last Filed: 02/23/23 19:33> Orders Ordered: ED Orders 02/23/23 11:02 CT head/brain wo con Stat 02/23/23 11:03 CT cervical spine wo con Stat 02/23/23 11:04 CXR [XR chest 1V] Stat Vital Signs Vital signs: Vital Signs - 8 hr 02/23/23 12:33 02/23/23 12:34 02/23/23 12:34 Pulse Rate 81 Blood Pressure 112/56 L Pulse Oximetry 98 98 MDM - Back Pain/Injury <Emily Randolph PA-C - Last Filed: 02/23/23 12:28> Differential Diagnosis Differential diagnosis: Likely thoracic back pain and other (Cervical strain, muscle spasms, fracture) Medical Records Attestation: I reviewed the patient's medical records. Imaging Data CT - cervical spine: My Impression: Agree with Radiology interpretation Radiologist's Impression: [address] [address] [address] Scan Report Signed Patient: Shruti Rosales I MR#: [id number] : 1950 Acct:[id number] Age/Sex: 72 / F Date of Service: 02/23/23 Loc: ED Accession Number: [id number] ?? Procedure: CT cervical spine wo con Ordering Provider: Ingrid Wellington D.O. PROCEDURE:? CT CERVICAL SPINE WO CON ? INDICATIONS:? fall ? TECHNIQUE:? Noncontrast 3 mm thick sections acquired from the skull base to the T4 level.? Sagittal and coronal reformats were then constructed.? For radiation dose reduction, the following was used:? automated exposure control, adjustment of mA and/or kV according to patient size.? ? COMPARISON:? [facility], CT, HEAD AND NECK ANGIO, 04/27/2017, 12:43. ? FINDINGS:? Image quality:? Excellent.? ? Bones:? No acute osseous fracture.? There is 3 mm grade 1 anterolisthesis of C4 on C5, which does not appear significantly changed when compared to CTA from 04/27/2017.? Multilevel disc space narrowing seen as well as uncovertebral joint and facet hypertrophy, overall worst at the C5-6 disc space level.? Visualized superior ribs are intact.? ? Soft tissues:? Prevertebral soft tissues are normal in thickness.? No paravertebral hematomas.? No apical pneumothoraces.? ? IMPRESSION:? 1. No acute cervical spine fracture. 2. Grade 1 anterolisthesis of C4 on C5 does not appear significantly changed when compared to prior exam from 04/27/2017. 3. Mild multilevel spondylosis.? ? Approved by: Scott Guzman M.D. on 02/23/2023 at 11:30? CT scan - head: My Impression: Agree with Radiology interpretation Radiologist's Impression: [address] [address] [address] Scan Report Signed Patient: Shruti Rosales I MR#: [id number] : 1950 Acct:[id number] Age/Sex: 72 / F Date of Service: 02/23/23 Loc: ED Accession Number: [id number] ?? Procedure: CT head/brain wo con Ordering Provider: Ingrid Wellington D.O. PROCEDURE:? CT HEAD/BRAIN WO CON ? INDICATIONS:? fall ? TECHNIQUE:? Noncontrast 4.5 mm thick angled axial sections acquired from the foramen magnum to the vertex, with coronal and sagittal reformats.? For radiation dose reduction, the following was used:? automated exposure control, adjustment of mA and/or kV according to patient size.? ? COMPARISON:? [facility], CT, HEAD WITHOUT CONTRAST, 04/27/2017, 11:24. ? FINDINGS:? Image quality:? Excellent.? ? CSF spaces:? Basal cisterns are patent.? No extra-axial fluid collections.? The ventricles are symmetric in size and shape.? ? Brain:? No acute intracranial hemorrhage or mass effect.? There is cerebral volume loss for age, with resultant ventricular and sulcal prominence.? There are periventricular and deep white matter chronic small vessel ischemic changes.? There is intracranial internal carotid artery atherosclerosis.? ? Skull and face:? Calvarium and visualized facial bones appear intact, without suspicious lesions.? ? Sinuses:? Visualized sinuses and mastoids are clear.? ? IMPRESSION:? No acute intracranial abnormality. ? ? ? Approved by: Scott Guzman M.D. on 02/23/2023 at 11:26? Chest x-ray: My Impression: Agree with Radiology interpretation Radiologist's Impression: [address] [address] XRay Report Signed Patient: Shruti Rosales I MR#: [id number] : 1950 Acct:[id number] Age/Sex: 72 / F Date of Service: 02/23/23 Loc: ED Accession Number: [id number] ?? Procedure: XR chest 1V Ordering Provider: Ingrid Wellington D.O. PROCEDURE:? XR CHEST 1V ? INDICATIONS:? fall ? TECHNIQUE:? One view of the chest was acquired.? ? COMPARISON:? [facility], CT, CT CHEST ABD PEL W CON, 02/15/2023, 13:45.? [facility], , CHEST 2 VIEW, 10/11/2016, 12:28. ? FINDINGS:? ? Surgical changes and devices:? None.? ? Lungs and pleura:? Lungs are clear.? No pleural effusions or pneumothorax.? ? Mediastinum:? Mediastinal contours appear normal.? Heart size is normal.? ? Bones and chest wall:? No suspicious bony lesions.? Overlying soft tissues appear unremarkable.? ? IMPRESSION:? No acute cardiopulmonary abnormality. ? ? ? Approved by: Scott Guzman M.D. on 02/23/2023 at 11:31? Treatment and disposition Shared decision making:: shared decision making was used in determining pt's plan of care and plan for out patient follow up MDM Narrative Medical decision making narrative: Is a well-appearing 72-year-old woman with a history of Parkinson's who presents with concern for neck pain after she fell backwards and hyperflexed her neck 3 days ago when using her electric wheelchair for the 1st time. Patient has sustained no other injuries. Her exam today shows no new deficits and her history is also not concerning for deficit/spinal injury, she does have paraspinal muscle tenderness and some spinous process tenderness C7 and T1 on exam. Upon triage patient is placed in a C-collar as a precaution, CT scan of head, neck and chest x-ray are obtained for further evaluation. These returned negative for acute injury, patient is noted to have a unchanged mild anterolisthesis of the cervical spine from previous imaging studies in 2017, also some disc space narrowing of the cervical spine. Discussed the findings with the patient and options for pain control versus possibly a muscle relaxer, patient ultimately opted to pursue Tylenol and ibuprofen she also has diclofenac at home and will use this as well. She is counseled regarding return precautions, emergency department precautions, follow-up plan discussed, all questions answered. Discharge Plan Departure Patient Disposition: Home Clinical Impression: Acute neck pain, Muscle tightness, Fall Instructions: DI for Muscle Spasm Activity Restrictions/Additional Instructions: *You have been diagnosed with 72 *What to do: *Please continue to take your regular medications as directed. [ ] New medication prescriptions sent to your pharmacy: [ ] [ ] New medication written as a paper prescription [ *] No new medications given *Please follow up with your primary care provider in 2-3 days, call for an appointment. Let them know you were seen in the Emergency Department and that we ask that you be seen in follow up. We will electronically transmit a record of today's note if your PCP is in our system. As we discussed today your imaging looks good we do not see any evidence of an acute injury from your recent fall. We discussed options for pain control and your muscle tightness, after discussion we agreed that you can continue with Tylenol and ibuprofen and try the diclofenac gel you already have at home. You may want to try some heat and ice as well alternating or whichever 1 feels better to you. Ultimately you did decide that you want lidocaine and I prescribed patches for you. *If you do not have a primary care provider please contact the [facility] Resource line at [phone]. They will ask some questions about your medical history and help get you set up with a doctor in the community. *Return to Emergency Department if you should have any new, worsening or concerning symptoms, such as [fever greater than 101 F, shaking chills, worsening pain, persistent vomiting or other bothersome symptoms] Prescriptions: New lidocaine 5 % adhesive patch,medicated 1 patch topical DAILY Qty: 15 1RF Rx Instructions: leave on most painful area for up to 12 hrs No Action carbidopa-levodopa 10-100 mg tablet 1 tab PO ONCE omega-3 fatty acids Capsule 1,000 mg PO DAILY vjsxwhr-neaw-kaudp-oreg-capryl 100 mg-150 mg- 50 mg-150 mg capsule PO vitamin d .Route Rx Instructions: .[id number] mcg calcium carb-magnesium carb PO cholestyramine-aspartame [Cholestyramine Light] 4 gram powder in packet 4 g PO DAILY Qty: 60 0RF Rx Instructions: administer w/meal; avoid other meds within 1hr before or 4-6hr after dose diazepam 2 mg tablet 5 mg PO BID PRN (Reason: Anxiety) Rx Instructions: 1/2 tablet qam fluoxetine 40 mg Capsule 40 mg PO DAILY Referrals: Zaira Odom MD [Primary Care Provider] - Stand Alone Forms: Patient Portal/API <Ingrid Wellington DO - Last Filed: 02/23/23 19:33> Cosign ED Attending Cosignature Attestation: I was immediately available in the department for consultation. Documentation has been reviewed.
== END 2023-02-23 12:39 | disposition home or self-care (01) ==
PROVIDERS: Emergency Provider Student in an Organized Health Care Education/Training Program; Family Provider Family Medicine; PCP Family Medicine
DX: M54.2 Cervicalgia (principal); M62.838 Other muscle spasm; V00.811A Fall from moving wheelchair (powered), initial encounter
CPT/HCPCS: 70450; 71045; 72125; 99284

== ENCOUNTER 2025-02-14 15:13 | Emergency (ER) | payer MEDICARE, OTHER, SELFPAY ==
[2025-02-14 15:50] VITALS: BP 133/58; PULSE 77; RESP 20; TEMP 36.6; O2SAT 94; BMI 25.0
--- NOTE | 2025-02-14 15:55 | DI.RAD.S_ITS ---
PROCEDURE: XR HIP W PEL IF DONE LT 2V INDICATIONS: pain TECHNIQUE: AP pelvis with lateral view(s) of the left hip(s). COMPARISON: None. FINDINGS: Bones: No fractures or dislocations. Pelvic ring appears intact. No suspicious bony lesions. Moderate bilateral degenerative hip joint space narrowing. Soft tissues: The visualized bowel gas pattern is normal. No suspicious soft tissue calcifications. IMPRESSION: No visualized acute fracture or dislocation. However, if clinical concern and/or pain persist, short interval imaging followup in 7-10 days is recommended, as occult injury cannot be definitively excluded. Dictated by: Jes Basilio M.D. on 02/14/2025 at 16:30 Approved by: Jes Basilio M.D. on 02/14/2025 at 16:30
--- NOTE | 2025-02-14 17:54 | ED.EXTPRO ---
HPI - Extremity Problem <Deborah Lockhart PA-C - Last Filed: 02/14/25 19:56> General Chief complaint: Extremity Problem,Nontraumatic Stated complaint: Abominal Pain Time Seen by Provider: 02/14/25 16:37 Mode of arrival: Ambulatory History of Present Illness HPI Narrative: Ms. Rosales is a very pleasant 74-year-old female with a past medical history of Parkinson's disease who presents to the emergency department for left hip pain for the last several days. Patient states that she occasionally does fall because of her Parkinson's disease but she has had no fall or direct trauma to the left hip. Over the last few days she is noticed some pain in her anterior/lateral left hip that is worse with standing and bearing weight. She has no numbness tingling or weakness extending down the leg. She does suffer from some chronic low back pain. States that her left hip pain has actually been getting better, she uses gabapentin chronically for pain but no other pain medications. She denies any chest pain, shortness of breath, abdominal pain, nausea, vomiting, diarrhea, constipation, dysuria, hematuria. She ambulates with walking sticks at baseline. Related Data Home Medications Medication Instructions Recorded Confirmed fluoxetine 40 mg capsule 40 mg PO DAILY 01/29/20 03/11/22 calcium carb-magnesium carb PO 03/11/22 03/11/22 carbidopa 10 mg-levodopa 100 mg 1 tab PO ONCE 03/11/22 03/11/22 tablet diazepam 2 mg tablet 5 mg PO BID PRN Anxiety 03/11/22 03/11/22 omega-3 fatty acids 1,000 mg PO DAILY 03/11/22 03/11/22 turmeric 100 mg-sam 150 cap PO 03/11/22 03/11/22 mg-olive 50 mg-oreg 150 mg-capryl capsule vitamin d .Route 03/11/22 Previous Rx's Medication Instructions Recorded cholestyramine-aspartame 4 gram 4 g PO DAILY #60 ea 03/11/22 oral powder for susp in a packet (Cholestyramine Light) lidocaine 5 % topical patch 1 patch topical DAILY pain #15 ea 02/23/23 Allergies Allergy/AdvReac Type Severity Reaction Status Date / Time prochlorperazine Allergy Unknown TORTICOLLIS Verified 02/23/23 11:15 [PROCHLORPERAZINE] Phenothiazines AdvReac Dystonia Verified 02/23/23 11:15 Review of Systems <Deborah Lockhart PA-C - Last Filed: 02/14/25 19:56> Review of Systems ROS Unobtainable: All systems reviewed & are unremarkable except as noted in HPI and below Patient History <Deborah Lockhart PA-C - Last Filed: 02/14/25 19:56> Medical History (Updated 02/14/25 @ 18:16 by Deborah Lockhart PA-C) Former smoker Migraines Osteopenia Esophageal dysmotility RLS (restless legs syndrome) Gout Anxiety Gallstones Chronic back pain Osteoporosis Surgical History Hx of bilateral cataract extraction (01/2017) Status post hysterectomy Family History Brother Hypertension Diabetes mellitus Stroke Brother Heart disease Diabetes mellitus Grandfather Diabetes mellitus Social History marital status: unmarried,living together household members: significant other occupational status: previously employed Smoking Status: Never smoker alcohol intake: current substance use type: does not use Smoking Status: Never smoker tobacco type: cigarettes alcohol intake frequency: 0-2 drinks per day Exam <Deborah Lockhart PA-C - Last Filed: 02/14/25 19:56> Narrative Exam Narrative: GENERAL: 74 year old patient appears stated age. Well-developed very petite patient, in no acute distress. HEAD: Atraumatic. Normocephalic. NECK: Trachea midline. Cervical ROM intact. CARDIOVASCULAR: Regular rate and rhythm. RESPIRATORY: ?Nonlabored respirations. ?Speaking in clear, full sentences. ?Clear to auscultation. Breath sounds equal bilaterally. No wheezes, rales, or rhonchi. ? GASTROINTESTINAL: Abdomen soft, non-tender, nondistended. Normal BS. EXTREMITIES: No edema. Patient does have some tenderness to palpation of the left hip on the anterior/lateral aspect. She is able to stand and ambulate independently and reports some exacerbation of this pain. Feet are warm and well perfused. BACK: No back tenderness, no midline tenderness or step-offs. NEURO: AOx3. ?Clear speech. ?Moves all 4 extremities appropriately. Sensation intact to light touch on bilateral lower extremities. SKIN: No rash or erythema of visible areas Initial Vital Signs Initial Vital Signs: Vital Signs Temperature 98 F 02/14/25 15:50 Pulse Rate 77 02/14/25 15:50 Respiratory Rate 20 02/14/25 15:50 Blood Pressure 133/58 L 02/14/25 15:50 Pulse Oximetry 94 02/14/25 15:50 Oxygen Delivery Method Room Air 02/14/25 15:50 <Ranjeet Santiago MD - Last Filed: 02/19/25 10:33> Initial Vital Signs Initial Vital Signs: Vital Signs Temperature 98 F 02/14/25 15:50 Pulse Rate 77 02/14/25 15:50 Respiratory Rate 20 02/14/25 15:50 Blood Pressure 133/58 L 02/14/25 15:50 Pulse Oximetry 94 02/14/25 15:50 Oxygen Delivery Method Room Air 02/14/25 15:50 Course <Deborah Lockhart PA-C - Last Filed: 02/14/25 19:56> Orders Ordered: ED Orders 02/14/25 15:55 XR hip w pel LT 2V Stat Vital Signs Vital signs: Vital Signs - 8 hr 02/14/25 15:50 02/14/25 18:24 Temperature 98 F 98.0 F Pulse Rate 77 74 Respiratory Rate 20 18 Blood Pressure 133/58 L 127/60 Pulse Oximetry 94 98 Oxygen Delivery Method Room Air Room Air <Ranjeet Santiago MD - Last Filed: 02/19/25 10:33> Orders Ordered: ED Orders 02/14/25 15:55 XR hip w pel LT 2V Stat Vital Signs Vital signs: Vital Signs - 8 hr 02/14/25 15:50 02/14/25 18:24 Temperature 98 F 98.0 F Pulse Rate 77 74 Respiratory Rate 20 18 Blood Pressure 133/58 L 127/60 Pulse Oximetry 94 98 Oxygen Delivery Method Room Air Room Air MDM - Extremity (Nontraumatic) <Deborah Lockhart PA-C - Last Filed: 02/14/25 19:56> Medical Records Attestation: I reviewed the patient's medical records. Imaging Data XR Left Hip with Pelvis: Radiologist's Impression: PROCEDURE: XR HIP W PEL IF DONE LT 2V INDICATIONS: pain TECHNIQUE: AP pelvis with lateral view(s) of the left hip(s). COMPARISON: None. FINDINGS: Bones: No fractures or dislocations. Pelvic ring appears intact. No suspicious bony lesions. Moderate bilateral degenerative hip joint space narrowing. Soft tissues: The visualized bowel gas pattern is normal. No suspicious soft tissue calcifications. IMPRESSION: No visualized acute fracture or dislocation. However, if clinical concern and/or pain persist, short interval imaging followup in 7-10 days is recommended, as occult injury cannot be definitively excluded. Dictated by: Jes Basilio M.D. on 02/14/2025 at 16:30 Approved by: Jes Basilio M.D. on 02/14/2025 at 16:30 [facility] Narrative Medical decision making narrative: 74-year-old female with a past medical history of Parkinson's disease who presents to the emergency department for left hip pain for the last several days. Differential diagnosis includes but not limited to left hip sprain, strain, arthritis, fracture, etc. On exam patient is in no acute distress, nontoxic appearing, vital signs appropriate. Her lower extremities are neurovascularly intact. She has some left anterior/lateral hip pain that is worse with weight-bearing. No direct trauma. No open wounds. Pain has been improving on its own. X-ray hip and pelvis obtained in triage reveals no acute fracture dislocation. She does have moderate bilateral degenerative hip joint space narrowing. At this time I suspect her pain is likely related to this left hip arthritis, recommended NSAIDs, supportive care, she declines any pain medication at this time and would like to be discharged home. Advised prompt follow up with the PCP who may recommend referral to Orthopedics, she is already getting physical therapy for her Parkinson's disease she discussed that she will tell her PT about her hip arthritis to add in some additional exercises. Discussed strict ED return precautions. She verbalized understanding of all information agreeable with the plan. She is stable for discharge home. 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 Rosales, Thank you for coming to the emergency department. Today you were evaluated for left hip pain. Your x-ray shows arthritis of both hips. I would like you to rest, use ibuprofen/Advil/Motrin or Aleve/naproxen to help with the pain in addition to taking Tylenol. Please follow up with your primary care doctor who may refer you to orthopedics for further evaluation. Please take Ibuprofen (Motrin/Advil) or Acetaminophen (Tylenol) for pain. These are available over the counter. You may take Ibuprofen 600 mg every 8 hours with food for pain or 400mg every 6 hours. You may also take Acetaminophen 650 mg every 4-6 hours for pain. Do not exceed 3000 mg of Tylenol a day as this can cause liver damage. Do not drink alcohol with either of these medications. Using topical arthritis cream such as Voltaren gel in addition to heat or cold therapy can also help. Please follow up with your primary care doctor within the next 2-3 days for ER follow-up. (If you do not have a PCP you can call [phone]. ?to schedule an appointment with an [facility] Primary Care Provider) IF YOU DEVELOP ANY NEW OR WORSENING SYMPTOMS, RETURN TO THE ER! Please read the attached instructions, they highlight more specific treatments and interventions for you at home. Thank you for letting me participate in your care, Deborah Lockhart PA-C Prescriptions: No Action carbidopa-levodopa 10-100 mg tablet 1 tab PO ONCE omega-3 fatty acids Capsule 1,000 mg PO DAILY [id number] 100 mg-150 mg- 50 mg-150 mg capsule PO vitamin d .Route Rx Instructions: .[id number] mcg calcium carb-magnesium carb PO cholestyramine-aspartame [Cholestyramine Light] 4 gram powder in packet 4 g PO DAILY Qty: 60 0RF Rx Instructions: administer w/meal; avoid other meds within 1hr before or 4-6hr after dose lidocaine 5 % adhesive patch,medicated 1 patch topical DAILY Qty: 15 1RF Rx Instructions: leave on most painful area for up to 12 hrs diazepam 2 mg tablet 5 mg PO BID PRN (Reason: Anxiety) Rx Instructions: 1/2 tablet qam fluoxetine 40 mg Capsule 40 mg PO DAILY Referrals: Zaira Odom MD [Primary Care Provider] - Stand Alone Forms: Patient Portal/API/Survey ED Sign-out <Ranjeet Santiago MD - Last Filed: 02/19/25 10:33> Cosign ED Attending Juanature Attestation: I was immediately available in the department for consultation. ?This documentation has been reviewed and I agree with assessment and plan. Supervised by Ranjeet Santiago MD
[2025-02-14 18:24] VITALS: BP 127/60; PULSE 74; RESP 18; TEMP 36.7; O2SAT 98
== END 2025-02-14 18:25 | disposition home or self-care (01) ==
PROVIDERS: Emergency Provider Physician Assistant; Family Provider Family Medicine; PCP Family Medicine
DX: M16.0 Bilateral primary osteoarthritis of hip (principal)
CPT/HCPCS: 73502; 99281; 99283